=== PATIENT | male | born 1935 | race Caucasian/White ===

== ENCOUNTER 2019-10-08 10:58 | Outpatient (CLI) | payer MEDICARE, OTHER, SELFPAY ==
--- NOTE | 2019-10-08 11:09 | CT_ITS ---
WS: [id number] CT CERVICAL SPINE TECHNIQUE: Noncontrast CT of the cervical spine with coronal and sagittal reformatted images. CLINICAL INFORMATION: POST OPERATIVE STATE COMPARISON: August 19, 2019 DLP: 596.[address] scans at [facility] use at least one of these dose optimization techniques: automat ed exposure control; mA and/or kV adjustment per patient size (includes targeted exams where dose is matched to clinical indication); or iterative reconstruction. FINDINGS: Postoperative changes dorsal laminectomy C3-C4 and C4-C5 with posterior facet screw and sam fixation C4 and C5 hardware appears intact. No evidence of screw loosening. No high-grade central canal stenos is. Previously described postoperative changes in the subcutaneous soft tissues appears improved. Ant erior bridging osteophytes C5-C7 are unchanged. Normal dens. Normal C1-C2 articulation. C2-C3: Osteophytic ridging. Moderate right and no significant left foraminal narrowing. Mild central canal stenosis. C3-C4: Laminectomy defects. Severe left and moderate right bony foraminal narrowing. Mild facet arthr opathy. Spinal canal has been decompressed. C4-C5: Laminectomy defects with posterior instrumentation. Mild to moderate right and no significant left foraminal narrowing. Spinal canal is patent. C5-C6: Disc osteophytic complex with endplate ridging. Advanced left facet arthropathy. Moderate left and mild right bony foraminal narrowing. Mild central canal stenosis. C6-C7: Disc osteophyte protrusion with mild central canal stenosis. Moderate to severe bilateral fora krishan narrowing worse in the left. Mild central canal stenosis with small central disc osteophyte pro trusion. Moderate facet arthropathy. C7-T1: No significant disc bulging. Spinal canal and foramen are patent. Visualized posterior nasopharynx: Normal. Prevertebral soft tissues: Normal. CT/CT cervical spin wo con* [id number] IMPRESSION: 1. Postoperative changes laminectomy defects C3-C4 and C4-C5 with dorsal instr umentation at C4-5 unchanged. No evidence of hardware loosening. Interconnectin g rods appear intact. 2. Mild central canal stenosis C2-3 C5-6 and C6-7. 3. Multilevel bony foraminal narrowing described above.
== END 2019-10-08 10:59 | disposition home or self-care (01) ==
LOC: RADWPI 11:05
PROVIDERS: Family Provider Nurse Practitioner Family; PCP Family Medicine; Visit Provider Specialist
DX: Z98.890 Other specified postprocedural states (principal); M48.02 Spinal stenosis, cervical region; M96.1 Postlaminectomy syndrome, not elsewhere classified
CPT/HCPCS: 72125

== ENCOUNTER → 2019-10-21 09:37 | Outpatient (BNVA) | payer MEDICARE, OTHER, SELFPAY | PROVIDERS: Family Provider Nurse Practitioner Family; PCP Nurse Practitioner Family; Visit Provider Nurse Practitioner | DX: G89.28 Other chronic postprocedural pain (principal); M54.9 Dorsalgia, unspecified; M25.551 Pain in right hip; M25.552 Pain in left hip; M50.020 Cervical disc disorder with myelopathy, mid-cervical region, unspecified level; M79.601 Pain in right arm; Z79.891 Long term (current) use of opiate analgesic | CPT/HCPCS: 99214 ==

== ENCOUNTER 2019-11-08 07:17 | Emergency (ER) | payer MEDICARE, OTHER, SELFPAY ==
[2019-11-08 07:20] VITALS: BP 171/73; PULSE 53; RESP 16; TEMP 36.7; O2SAT 95; BMI 29.0
--- NOTE | 2019-11-08 07:27 | ED_ITS ---
Entered by Kat Madden, acting as scribe for Hussein Almaraz DO Nov 08, 2019 07:17 HPI - General Adult General: Chief complaint: General Medical Stated complaint: thoracic pain, nausea Time Seen by Provider: 11/08/19 07:33 Source: patient and family Mode of arrival: ambulatory Limitations: no limitations History of Present Illness: HPI narrative: 84 yo male presents with L rib pain and shortness of breath. pt states this started at 5 am this morning. pt states he woke up out of sleep with the pain. pt states he is having blurry vision in ED. pt has a hx of a bypass. pt states nothing makes this better or worse. pt has had sweating episdoes. pt denies any other symptoms at this time. MD complaint: L rib pain Onset (ago): hour(s) (5 AM) Location: upper extremity (L rib pain) Radiation: non-radiation Severity: moderate Quality: sharp Pain Consistency: constant Relieving factors: none Exacerbating factors: none Associated symptoms: Reports dyspnea, short of breath and other (sweats); Deny nausea, rash or vomiting Treatments prior to arrival: none Review of Systems General: Reports: 10 or more systems reviewed and unremarkable except in HPI and below Const: Reports: night sweats Eyes: Reports: blurry vision ENMT: Denies: throat pain, ear pain, nasal discharge or nasal congestion Resp: Reports: shortness of breath GI: Denies: abdominal pain, nausea, vomiting, vomiting blood, coffee grounds in vomit, diarrhea, constipation, bloating, blood in stool or black tarry stool : Denies: painful urination, urinary frequency or urinary urgency Skin/Breast: Denies: rash or itching PFSH ED PFSH: Medical History (Updated 11/08/19 @ 10:31 by Hussein Almaraz DO) Anxiety Atherosclerosis of coronary artery Atrial fibrillation Cervical disc disorder with myelopathy of mid-cervical region Depression Encounter for long-term use of opiate analgesic Obesity Type 2 diabetes mellitus treated with insulin Surgical History (Updated 10/21/19 @ 10:37 by MICHAEL Moss) H/O carpal tunnel repair bilat History of fusion of cervical spine C4-C5 laminectomy/fusion/fixation, 06/12/19 Hx of endarterectomy 2017 or 2018 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 Hx of shoulder surgery left shoulder -replacement, and right side was repair S/P hip replacement bilat Social History Smoking and tobacco status: never smoked Alcohol intake: never Lives independently: Yes Household members: none Marital status: / History of recent travel: No Physical Exam Const: COMMON NORMALS: no apparent distress GENERAL APPEARANCE: cooperative and comfortable ORIENTATION/CONSCIOUSNESS: Yes awake, Yes oriented to person, Yes oriented to place and Yes oriented to time HENMT: COMMON NORMALS: normocephalic, head/scalp atraumatic, hearing grossly normal bilaterally, external ears normal, EAC's normal, TM's normal bilaterally, nasal mucous membranes and turbinates normal, moist oral mucous membranes and oropharynx normal HEAD & SCALP: normocephalic and atraumatic NOSE: nasal mucous membranes and turbinates normal EXTERNAL EAR: Yes external ears normal EXTERNAL AUDITORY CANAL: EAC's normal TYMPANIC MEMBRANE: TM's normal bilaterally Eye: COMMON NORMALS: PERRL, EOMs intact bilaterally, conjunctivae normal and no scleral icterus CONJUNCTIVA: Yes conjunctivae normal PUPIL: Yes PERRL Neck/C-Spine: COMMON NORMALS: full ROM, no lymphadenopathy, supple and no JVD Lymph: LYMPHATIC: no lymphadenopathy noted and no lymphedema noted Chest: OTHER: Exquisite tenderness to palpation over the eighth and ninth ribs on the left. No rash noted. Resp: COMMON NORMALS: normal respiratory effort, no retractions, no use of accessory muscles and clear to auscultation bilaterally AUSCULTATION: clear to auscultation bilaterally Cardio: COMMON NORMALS: no JVD GI: COMMON NORMALS: soft to palpation and no hepatosplenomegaly AUSCULTATION: Yes normoactive bowel sounds PALPATION: Yes soft, No tender, No guarding and Yes no hepatosplenomegaly Extremity: COMMON NORMALS: normal to inspection, normal capillary refill, no clubbing, cyanosis or edema, no calf tenderness and no pedal edema Neuro: SENSORIUM/ORIENTATION: Yes oriented to person, Yes oriented to place and Yes oriented to time Skin: COMMON NORMALS: no rashes or lesions noted GENERAL SKIN EXAM: no rashes or lesions noted Course ED course: On the left lateral rib 8 and 9 in site there is a small lucency that might be a fracture although is only seen in one angle. Discussed with the patient we will wait and see what the radiologist over read is, possibly a fracture in either event he is exquisitely tender over that point will go ahead and treat him with pain medications he Juan R has previously had been prescribed to use as needed for pain and recheck as needed if worsens or changes be seen again Vital Signs: Vital signs: Vital Signs Temperature 98.1 F 11/08/19 07:20 Pulse Rate 66 11/08/19 10:43 Respiratory Rate 16 11/08/19 10:43 Blood Pressure 158/70 11/08/19 10:43 Pulse Oximetry 96 11/08/19 10:43 MDM - General Adult Lab Data: Labs: Lab Results 11/08/19 11/08/19 11/08/19 Range/Units 07:43 07:43 07:43 WBC 5.5 (4.0-10.0) 10^3/ uL RBC 4.51 (4.1-5.3) 10^6/u L Hgb 13.1 (11.7-16.6) g/dL Hct 39.6 L (42.0-52.0) % MCV 87.8 (80-94) fL MCH 29.0 (28.0-34.0) pg MCHC 33.1 (30.0-36.0) g/dL RDW 13.4 (12.1-15.1) % Plt Count 196 (130-400) 10^3/c mm MPV 10.3 (7.4-10.4) fL Neut % (Auto) 60.3 % Lymph % (Auto) 29.6 % [place]ne % (Auto) 7.4 % Eos % (Auto) 1.8 % Baso % (Auto) 0.4 % Neut # (Auto) 3.3 (1.8-7.7) 10^3/u L Lymph # (Auto) 1.6 (0.8-4.8) 10^3/u L [place]ne # (Auto) 0.4 (0.2-0.9) 10^3/u L Eos # (Auto) 0.1 (0.0-0.8) 10^3/u L Baso # (Auto) 0.0 (0.0-0.1) 10^3/u L Nucleated RBC % (a uto) 0 % Nucleated RBCs # 0.0 /100WBC Sodium 137 (136-145) mmol/L Potassium 4.4 (3.5-5.1) mmol/L Chloride 100 (98-107) mmol/L Carbon Dioxide 25 (22-29) mmol/L Anion Gap 16.4 (5-19) BUN 21 (8-23) mg/dL Creatinine 1.3 H (0.7-1.2) mg/dL Glucose 184 H (65-115) mg/dL Calcium 9.7 (8.5-10.5) mg/dL Total Bilirubin 0.6 (0.15-1.2) mg/dL AST 14 (0-40) U/L ALT 10 (0-41) U/L Alkaline Phosphata se 60 (40-130) IU/L Troponin T Baselin e 26 H (0-15) ng/mL Troponin T 120 Min [place] (0-15) ng/mL Delta Troponin T (0-10) ABS# Total Protein 7.2 (6.6-8.7) g/dL Albumin 4.4 (3.5-5.2) g/dL Globulin 2.8 (1.3-4.6) g/dL Lipase 8 L (13-60) U/L Urine Color (Yellow) Urine Appearance (CLEAR) Urine pH (5-7) Ur Specific Gravit y (1.005-1.030) Urine Protein (Negative) Urine Glucose (UA) (Normal) Urine Ketones (Negative) Urine Occult Blood (Negative) Urine Nitrate (Negative) Urine Bilirubin (NEGATIVE) Urine Urobilinogen (Negative) mg/dL Ur Leukocyte More ase (Negative) 11/08/19 11/08/19 Range/Units 08:08 09:56 WBC (4.0-10.0) 10^3/ uL RBC (4.1-5.3) 10^6/u L Hgb (11.7-16.6) g/dL Hct (42.0-52.0) % MCV (80-94) fL MCH (28.0-34.0) pg MCHC (30.0-36.0) g/dL RDW (12.1-15.1) % Plt Count (130-400) 10^3/c mm MPV (7.4-10.4) fL Neut % (Auto) % Lymph % (Auto) % [place] % (Auto) % Eos % (Auto) % Baso % (Auto) % Neut # (Auto) (1.8-7.7) 10^3/u L Lymph # (Auto) (0.8-4.8) 10^3/u L [place] # (Auto) (0.2-0.9) 10^3/u L Eos # (Auto) (0.0-0.8) 10^3/u L Baso # (Auto) (0.0-0.1) 10^3/u L Nucleated RBC % (a uto) % Nucleated RBCs # /100WBC Sodium (136-145) mmol/L Potassium (3.5-5.1) mmol/L Chloride (98-107) mmol/L Carbon Dioxide (22-29) mmol/L Anion Gap (5-19) BUN (8-23) mg/dL Creatinine (0.7-1.2) mg/dL Glucose (65-115) mg/dL Calcium (8.5-10.5) mg/dL Total Bilirubin (0.15-1.2) mg/dL AST (0-40) U/L ALT (0-41) U/L Alkaline Phosphata se (40-130) IU/L Troponin T Baselin e (0-15) ng/mL Troponin T 120 Min [place] 23.35 H (0-15) ng/mL Delta Troponin T -2.65 L (0-10) ABS# Total Protein (6.6-8.7) g/dL Albumin (3.5-5.2) g/dL Globulin (1.3-4.6) g/dL Lipase (13-60) U/L Urine Color Straw (Yellow) Urine Appearance Clear (CLEAR) Urine pH 5 (5-7) Ur Specific Gravit y 1.005 (1.005-1.030) Urine Protein Neg (Negative) Urine Glucose (UA) Norm (Normal) Urine Ketones Negative (Negative) Urine Occult Blood Neg (Negative) Urine Nitrate Negative (Negative) Urine Bilirubin Neg (NEGATIVE) Urine Urobilinogen Norm (Negative) mg/dL Ur Leukocyte More ase Negative (Negative) Discharge Plan Discharge Patient Disposition: Home, Self-Care Clinical Impression: Fracture of rib of left side Condition: Stable Prescriptions: New hydrocodone-acetaminophen 5-325 mg tablet 1 tab PO Q6H PRN (Reason: pain) Qty: 15 RF: 0 No Action hydrocodone-acetaminophen [Eckert] 10-325 mg tablet 1 tab PO .6 times a day PRN (Reason: pain) 30 Days Qty: 180 RF: 0 amlodipine 5 mg tablet See Rx Instructions .ROUTE .COMPLEX RF: 0 trazodone 50 mg tablet 50 mg PO BEDTIME PRN (Reason: Sleep) RF: 0 glyburide 5 mg tablet 5 mg PO BID RF: 0 nitroglycerin [Nitrostat] 0.4 mg tablet, sublingual 0.4 mg SUBLINGUAL Q5M PRN (Reason: Chest Pain) RF: 0 gabapentin 400 mg capsule 400 mg PO BID RF: 0 metoprolol succinate 25 mg capsule,sprinkle,ER 24hr 25 mg PO DAILY RF: 0 Januvia 50 mg tablet 50 mg PO DAILY RF: 0 aspirin 325 mg tablet 325 mg PO DAILY RF: 0 latanoprost 0.005 % drops 1 drp ophthalmic (eye) BID RF: 0 pioglitazone 45 mg tablet 45 mg PO DAILY RF: 0 Lasix 20 mg Tablet 20 mg PO DAILY PRN (Reason: Edema) RF: 0 potassium chloride 20 mEq tablet extended release 20 meq PO DAILY PRN (Reason: unknown) RF: 0 Discharge Orders: Discharge Order (Routine); Ordered 11/08/19 Ordered By: Hussein Almaraz Referrals: Penelope Pearson, [employer] MACHINE OPERATOR [Primary Care Provider] - Discharge Diet: Usual diet Discharge Activity: Increase activity as tolerated Discharge Date/Time: 11/08/19 10:44 Coding Level of Care Code ED Artillery Or Naval Gunfire Observer for Chg Fwd Exam Comprehensive The documentation recorded by the Chano fitch Bridget Annette, accurately reflects the service I personally performed and the decisions made by Rufina pedraza Curtis L, DO Nov 08, 2019 07:17
--- NOTE | 2019-11-08 07:37 | XR_ITS ---
WS: [id number] XR ribs LT mn 3V w CXR1V 06304 REASON FOR EXAM: rib pain FINDINGS: The left rib cage appears to be normal with no gross fractures or displacement. No pneumoth orax or pleural reaction. The previous sternotomy findings are seen. There is total left shoulder replacement satisfactory alignment. XR/XR ribs LT mn 3V w CXR1V [id number] IMPRESSION: No definite fractures of the rib cage on the left are seen.
--- NOTE | 2019-11-08 07:38 | ECG_ITS ---
Measurements Intervals [place] Rate: 60 P: 50 SC: 192 QRS: -11 QRSD: 92 T: 54 QT: 428 QTc: 429 SINUS RHYTHM WITH OCCASIONAL VENTRICULAR PREMATURE COMPLEXES NONSPECIFIC T-WAVE ABNORMALITY Compared to ECG 06/11/2019 11:14:59 Ventricular premature complex(es) now present T-wave abnormality now present Sinus bradycardia no longer present Electronically Signed On 11-08-2019 14:26:01 PUNCH PRESS OPERATOR by Lance Adam M.D. [email or web address]
[2019-11-08 08:13] LABS: Basophils % 0.4 %; Eosinophils # 0.1 10^3/uL (0.0-0.8); Eosinophils % 1.8 %; Hematocrit 39.6 % (42.0-52.0); Hemoglobin 13.1 g/dL (11.7-16.6); Lymphocytes # 1.6 10^3/uL (0.8-4.8); Lymphocytes % 29.6 %; Mean Corpuscular HGB Conc 33.1 g/dL (30.0-36.0); Mean Corpuscular Volume 87.8 fL (80-94); Mean Platelet Volume 10.3 fL (7.4-10.4); Monocytes # 0.4 10^3/uL (0.2-0.9); Monocytes % 7.4 %; Neutrophils # 3.3 10^3/uL (1.8-7.7); Neutrophils % 60.3 %; Nucleated Red Blood Cells % 0 %; Platelet Count 196 10^3/cmm (130-400); Red Blood Count 4.51 10^6/uL (4.1-5.3); Red Cell Distribution Width 13.4 % (12.1-15.1); White Blood Count 5.5 10^3/uL (4.0-10.0)
[2019-11-08 08:14] LABS: Alanine Aminotransferase 10 U/L (0-41); Albumin Level 4.4 g/dL (3.5-5.2); Alkaline Phosphatase 60 IU/L (40-130); Anion Gap 16.4 (5-19); Aspartate Amino Transferase 14 U/L (0-40); Blood Urea Nitrogen 21 mg/dL (8-23); Calcium 9.7 mg/dL (8.5-10.5); Carbon Dioxide 25 mmol/L (22-29); Chloride 100 mmol/L (98-107); Globulin 2.8 g/dL (1.3-4.6); Glucose 184 mg/dL (65-115); Lipase 8 U/L (13-60); Potassium 4.4 mmol/L (3.5-5.1); Sodium 137 mmol/L (136-145); Total Bilirubin 0.6 mg/dL (0.15-1.2); Total Protein 7.2 g/dL (6.6-8.7)
[2019-11-08 08:15] LABS: Troponin(5th) Baseline 26 ng/mL (0-15)
[2019-11-08] MEDS: HYDROcodone-acetaminophen 5-325 mg Tablet 1 TAB PO (09:06)
[2019-11-08 09:19] LABS: Add Urine Microscopic? NO
[2019-11-08 09:23] LABS: Bilirubin Urine Neg (NEGATIVE); Blood Urine Neg (Negative); Glucose Urine UA Norm (Normal); Ketones Urine Negative (Negative); Leukocyte Esterase Urine Negative (Negative); Nitrate Urine Negative (Negative); Protein Urine Neg (Negative); Specific Gravity, Urine 1.005 (1.005-1.030); Urine Appearance Clear (CLEAR); Urine Color Straw (Yellow); Urobilinogen Urine Norm (Negative); pH Urine 5 (5-7)
[2019-11-08 09:40] VITALS: BP 166/71; PULSE 58; RESP 16; O2SAT 95
[2019-11-08 10:19] LABS: Troponin 5 2HR 23.35 ng/mL (0-15); Troponin 5 2HR Delta -2.65 ABS# (0-10)
[2019-11-08 10:43] VITALS: BP 158/70; PULSE 66; RESP 16; O2SAT 96
--- NOTE | 2019-11-08 13:38 | ECG_ITS ---
Measurements Intervals [place] Rate: 57 P: 53 OK: 178 QRS: -7 QRSD: 90 T: -67 QT: 438 QTc: 427 SINUS BRADYCARDIA WITH FREQUENT VENTRICULAR PREMATURE COMPLEXES ST DEVIATION AND MODERATE T-WAVE ABNORMALITY, CONSIDER INFERIOR ISCHEMIA [-0.1+ mV T WAVE IN II/aVF] Compared to ECG 06/11/2019 11:14:59 Ventricular premature complex(es) now present T-wave abnormality now present Possible ischemia now present Electronically Signed On 11-08-2019 14:28:32 BAKER TEST by Lance Adam M.D. [email or web address]
== END 2019-11-08 10:44 | disposition home or self-care (01) ==
PROVIDERS: Emergency Provider Family Medicine; Family Provider Nurse Practitioner Family; PCP Nurse Practitioner Family
DX: S22.32XA Fracture of one rib, left side, initial encounter for closed fracture (principal); I25.10 Atherosclerotic heart disease of native coronary artery without angina pectoris; I48.91 Unspecified atrial fibrillation; E66.9 Obesity, unspecified; E11.9 Type 2 diabetes mellitus without complications; Z79.84 Long term (current) use of oral hypoglycemic drugs; Z79.82 Long term (current) use of aspirin; Z95.1 Presence of aortocoronary bypass graft; X58.XXXA Exposure to other specified factors, initial encounter; Z68.29 Body mass index [BMI] 29.0-29.9, adult
CPT/HCPCS: 36415; 71101; 80053; 81003; 83690; 84484; 85025; 93005; 99282; 99283

== ENCOUNTER → 2019-12-05 07:50 | Outpatient (BNVA) | payer MEDICARE, OTHER, SELFPAY | PROVIDERS: Family Provider Nurse Practitioner Family; PCP Nurse Practitioner Family; Visit Provider Anesthesiology | DX: G89.28 Other chronic postprocedural pain (principal); M25.551 Pain in right hip; M25.552 Pain in left hip; M50.020 Cervical disc disorder with myelopathy, mid-cervical region, unspecified level; M54.9 Dorsalgia, unspecified; Z96.643 Presence of artificial hip joint, bilateral; Z79.891 Long term (current) use of opiate analgesic | CPT/HCPCS: 99214 ==

== ENCOUNTER 2019-12-08 12:27 | Outpatient (CLI) | payer MEDICARE, OTHER, SELFPAY ==
--- NOTE | 2019-12-08 13:30 | CT_ITS ---
WS: [id number] CT cervical spine. Additional two-dimensional coronal and sagittal reconstruction was performed. 12/07 Clinical Data: post operative Comparison: CT cervical spine, 10/08/2019. DLP: 664.[address] scans at [facility] use at least one of these dose optimization techniques: automat ed exposure control; mA and/or kV adjustment per patient size (includes targeted exams where dose is matched to clinical indication); or iterative reconstruction. Findings: The patient has had laminectomies at C3-C4 and C4-C5 with posterior facet screws and connecting rods . The fixation devices have not changed in position and there is no loosening. There is osteophyte fo rmation from C2 through T1 unchanged. There is disc space narrowing at C2-C3, C3-C4 and C6-C7. The od ontoid is intact and unchanged. C2-C3: There is posterior osteophyte formation with bilateral foraminal narrowing and mild central ca nal stenosis unchanged. C3-C4: There is severe bilateral foraminal narrowing with facet joint arthritis. C4-C5: There is right foraminal narrowing and no left foraminal narrowing unchanged. C5-C6: There is bilateral foraminal narrowing with posterior osteophyte impingement on the central ca nal. C6-C7: There is posterior osteophyte formation with facet joint arthritis. C7-T1: No disc bulge, canal stenosis or foraminal stenosis is seen. CT/CT cervical spin wo con* [id number] Impression: 1. Laminectomy at C3-4 and C4-5 unchanged. 2. Osteophyte formation at the anterior cervical vertebral bodies unchanged. 3. Multilevel degenerative disc narrowing unchanged. 4. Posterior cervical fusion at C4-C5 unchanged. 5. Multilevel foraminal narrowing, canal stenosis and the posterior disc and os teophyte protrusion unchanged.
== END 2019-12-08 12:28 | disposition home or self-care (01) ==
LOC: RAD 12:31
PROVIDERS: Family Provider Nurse Practitioner Family; PCP Nurse Practitioner Family; Visit Provider Specialist
DX: Z98.1 Arthrodesis status (principal); M47.892 Other spondylosis, cervical region; M50.221 Other cervical disc displacement at C4-C5 level
CPT/HCPCS: 72125

== ENCOUNTER 2020-03-08 08:28 | Outpatient (CLI) | payer MEDICARE, OTHER, SELFPAY ==
--- NOTE | 2020-03-08 09:00 | CT_ITS ---
WS: [id number] CT CERVICAL SPINE TECHNIQUE: Noncontrast CT of the cervical spine with coronal and sagittal reformatted images. CLINICAL INFORMATION: s/p cervical spinal fusion COMPARISON: December 08, 2019 DLP: 1704.[address] scans at [facility] use at least one of these dose optimization techniques: automat ed exposure control; mA and/or kV adjustment per patient size (includes targeted exams where dose is matched to clinical indication); or iterative reconstruction. FINDINGS: Postoperative changes dorsal laminectomy C3-C4 and C4-C5 with posterior facet screw and sam fixation C4-C5. Hardware appears intact. No evidence of screw loosening. No high-grade central canal stenosis. Anterior bridging osteophytes C5-C7 are unchanged. Normal dens. Normal C1-C2 articulation. C2-C3: Osteophytic ridging. Moderate right and no significant left foraminal narrowing. Mild central canal stenosis. C3-C4: Laminectomy defects. Severe left and moderate right bony foraminal narrowing. Mild facet arthr opathy. Spinal canal has been decompressed. C4-C5: Laminectomy defects with posterior instrumentation. Mild to moderate right and no significant left foraminal narrowing. Spinal canal is patent. C5-C6: Disc osteophytic complex with endplate ridging. Advanced left facet arthropathy. Moderate left and mild right bony foraminal narrowing. Mild central canal stenosis. C6-C7: Disc osteophyte protrusion with mild central canal stenosis. Moderate to severe bilateral fora krishan narrowing worse in the left. Mild central canal stenosis with small central disc osteophyte pro trusion. Moderate facet arthropathy. C7-T1: No significant disc bulging. Spinal canal and foramen are patent. CT/CT cervical spin wo con* [id number] IMPRESSION: 1. Postoperative changes laminectomy defects C3-C4 and C4-C5 with dorsal instr umentation at C4-5 unchanged. No evidence of hardware loosening. Interconnectin g rods appear intact. 2. Mild central canal stenosis C2-3, C5-6, and C6-7 unchanged. 3. Multilevel bony foraminal narrowing described above.
== END 2020-03-08 08:29 | disposition home or self-care (01) ==
LOC: RADWPI 08:31
PROVIDERS: Family Provider Nurse Practitioner Family; PCP Nurse Practitioner Family; Visit Provider Specialist
DX: Z98.1 Arthrodesis status (principal); M43.22 Fusion of spine, cervical region; M48.02 Spinal stenosis, cervical region
CPT/HCPCS: 72125

== ENCOUNTER → 2020-03-29 11:17 | Outpatient (BNVA) | payer MEDICARE, OTHER, SELFPAY | PROVIDERS: Family Provider Nurse Practitioner Family; PCP Family Medicine; Visit Provider Specialist | DX: M50.020 Cervical disc disorder with myelopathy, mid-cervical region, unspecified level (principal); G56.01 Carpal tunnel syndrome, right upper limb; G56.23 Lesion of ulnar nerve, bilateral upper limbs | CPT/HCPCS: 95886; 95910 ==

== ENCOUNTER → 2020-03-30 08:14 | Outpatient (BNVA) | payer MEDICARE, OTHER, SELFPAY | PROVIDERS: Family Provider Nurse Practitioner Family; PCP Nurse Practitioner Family; Visit Provider Anesthesiology | DX: G89.28 Other chronic postprocedural pain (principal); M50.020 Cervical disc disorder with myelopathy, mid-cervical region, unspecified level; M25.551 Pain in right hip; M25.552 Pain in left hip; G56.01 Carpal tunnel syndrome, right upper limb; Z96.643 Presence of artificial hip joint, bilateral; Z79.891 Long term (current) use of opiate analgesic | CPT/HCPCS: 99214 ==

== ENCOUNTER → 2020-04-19 13:12 | Outpatient (BNVA) | payer MEDICARE, OTHER, SELFPAY | PROVIDERS: Family Provider Nurse Practitioner Family; PCP Nurse Practitioner Family; Referring Provider Specialist; Visit Provider Specialist | DX: M25.531 Pain in right wrist (principal) | CPT/HCPCS: 73110 ==

== ENCOUNTER → 2020-05-05 09:28 | Outpatient (BNVA) | payer MEDICARE, OTHER, SELFPAY | PROVIDERS: Family Provider Nurse Practitioner Family; PCP Nurse Practitioner Family; Visit Provider Family Medicine | DX: E11.9 Type 2 diabetes mellitus without complications (principal); Z98.890 Other specified postprocedural states; Z98.1 Arthrodesis status; G56.01 Carpal tunnel syndrome, right upper limb; F41.9 Anxiety disorder, unspecified; G56.23 Lesion of ulnar nerve, bilateral upper limbs; I10 Essential (primary) hypertension; R20.8 Other disturbances of skin sensation | CPT/HCPCS: 83036 ==

== ENCOUNTER → 2020-06-01 09:44 | Outpatient (BNVA) | payer MEDICARE, OTHER, SELFPAY | PROVIDERS: Family Provider Nurse Practitioner Family; PCP Nurse Practitioner Family; Visit Provider Anesthesiology | DX: M50.020 Cervical disc disorder with myelopathy, mid-cervical region, unspecified level (principal); Z79.891 Long term (current) use of opiate analgesic; Z98.1 Arthrodesis status | CPT/HCPCS: 99213; 99214 ==